=== PATIENT | male | born 1945 | race Caucasian/White ===

== ENCOUNTER 2016-08-20 11:17 | Inpatient (IN) | payer OTHER ==
[~2016-08-20] VITALS: Ht 195.6 cm; Wt 144.3 kg
[~2016-08-20 11:17] MED LIST: ADULT LOW DOSE81 M1 PO; ALBUTEROL SULF8.5 GM IH; ALLOPURINOL100 MG PO; ALLOPURINOL300 MG PO; AMBIEN CR12.5 MG PO; AMBIEN10 MG PO; ANTIVERT25 MG PO; ASPIR 8181 M1 PO; ATIVAN1 MG PO; ATORVASTATIN CA80 MG PO; AUGMENTIN875 MG PO; Antivert PO; Aspirin E.C. PO; Ativan PO; CALCIUM 500 +1 EAC3 PO; CALCIUM 500 +1 EACH PO; CARDIZEM CD,CA240 MG PO; CARDIZEM CD240 MG PO; CARDIZEM LA240 MG PO; CARTIA XT240 MG PO; CELEXA20 MG PO; CITALOPRAM HBR20 MG PO; COLCRYS0.6 MG PO; Cardizem CD,Cartia X PO; DAILY VITAMIN1 EAC8 PO; DALIRESP500 MCG PO; DICLOFENAC SODI75 MG PO; DIGOXIN125 MCG PO; DIGOXIN250 MCG PO; DILTIAZEM HCL360 MG PO; DIOVAN160 MG PO; DIOVAN320 MG PO; DIOVAN40 MG PO; DOXYCYCLINE HY100 MG PO; DURAGESIC12 MCG TD; DURAGESIC25 MCG TD; Diclofenac Sodium PO; Duragesic TD; ERGOCALCIF50000 UNIT PO; FENTANYL1 EAC4 TD; FENTANYL1 EAC5 TD; FLOMAX0.4 MG PO; FLONASE16 G1 BOTH NARES; FUROSEMIDE40 MG PO; Flomax PO; GABAPENTIN100 MG PO; GABAPENTIN600 MG PO; GLUCOPHAGE1000 MG PO; GLUCOPHAGE500 MG PO; INCRUSE ELLI62.5 MCG IH; K-DUR20 MEQ PO; KEFLEX500 MG PO; LANOXIN250 MCG PO; LANTUS 10100 UNITS/ SC; LANTUS 3 M100 UNITS1 SC; LASIX40 MG PO; LASIX80 MG PO; LIPITOR40 MG PO; LIPITOR80 MG PO; LORAZEPAM1 MG PO; LORCET 5-325 M1 EACH PO; Lanoxin,Digitek PO; Lasix PO; Lipitor PO; MATZIM LA240 MG PO; METFORMIN HCL1000 MG PO; METFORMIN HCL500 MG PO; METOPROLOL TART50 MG PO; MIRALAX17 GM PO; NEURONTIN100 MG PO; NEURONTIN300 MG PO; NEURONTIN600 MG PO; NOVOLOG 10100 UNITS/ SC; NOVOLOG PE100 UNITS/ SC; Neurontin PO; OXYCODONE HCL10 MG PO; OXYCODONE-APAP1 EACH PO; PERCOCET 10/1 TABLET PO; PLAVIX75 MG PO; PREDNISONE20 MG PO; PROAIR HFA8.5 GM IH; Percocet 5/325,Endoc PO; Plavix PO; REQUIP0.5 MG PO; SPIRIVA1 INHALATI IH; SYMBICORT60 INHALAT IH; Symbicort 160-4.5 mc IH; VITAMIN D1000 INTUN PO; Vitamin D PO; XARELTO20 MG PO; Xarelto PO; ZOLPIDEM TARTRA10 MG PO; ZYLOPRIM100 MG PO; Zyloprim PO
[2016-08-20 12:44] LABS: ADD MIUA? YES; BILIRUBIN NEGATIVE; BLOOD SMALL; COLOR YELLOW ((YELLOW)); GLUCOSE (STRIP) 50; KETONES NEGATIVE; LEUKOCYTES NEGATIVE; NITRITE NEGATIVE; PROTEIN (STRIP) >=500; SPECIFIC GRAVITY 1.029 (1.000-1.030); UROBILINOGEN 0.2 MG/DL (0.2-1.0)
[2016-08-20 12:47] LABS: BACTERIA NONE SEEN /HPF; EPITHELIAL CELLS RARE /HPF; HYALINE CASTS 0-5 /LPF; MUCUS TRACE /LPF; RED BLOOD CELLS 0-5 /HPF (0-5); WHITE BLOOD CELLS 0-5 /HPF (0-5)
[2016-08-20 12:57] LABS: EOSINOPHIL (%) 1.5 % (0-5); EOSINOPHIL COUNT 0.2 K/uL (0-0.3); IMMATURE GRANULOCYTE (%) 0.4 % (0.0-0.7); INSTRUMENT ABS NEUTROPHIL CT 8.5 K/uL; LYMPHOCYTE COUNT 1.2 K/uL (1.0-2.8); MCH 26.1 PG (29.0-34.0); MCHC 31.2 G/DL (30.0-36.0); MCV 83.8 FL (86-99); MEAN PLAT.VOLUME 11.3 uM^3 (9.0-12.4); MONOCYTE (%) 5.8 % (3-12); MONOCYTE COUNT 0.6 K/uL (0-0.8); NEUTROPHIL (%) 80.5 % (45-76); NEUTROPHIL COUNT 8.5 K/uL (1.8-6.4); PLATELET COUNT 225 K/uL (156-360); RBC DIS.WIDTH-CV 15.5 % (11.8-14.6); RBC DIS.WIDTH-SD 45.8 % (39-53); RED BLOOD COUNT 5.97 M/uL (4.00-5.50); WHITE BLOOD COUNT 10.6 K/uL (4.1-10.2)
[2016-08-20 13:08] LABS: CHLORIDE 103 mEq/L (99-109); POTASSIUM 4.3 mEq/L (3.7-5.4); SODIUM 140 mEq/L (136-147)
[2016-08-20 13:11] LABS: GLUCOSE 174 mg/dL (70-99)
[2016-08-20 13:12] LABS: ANION GAP 11 MEQ/L (2-14)
[2016-08-20 13:14] LABS: ALKALINE PHOSPHATASE 91 IU/L (3-129); GFR ESTIMATE (CALCULATED) 58 mL/min/
[2016-08-20 13:15] LABS: UREA NITROGEN (BUN) 21 mg/dL (9-23)
[2016-08-20 13:18] LABS: LIPASE 33 U/L (1.0-51.0)
[2016-08-20] MEDS ORDERED: NOVOLOG PE100 UNITS/ SC ×2 (16:00→16:01)
[2016-08-20] MEDS ORDERED: CORDARONE200 MG PO (16:03)
[2016-08-20] MEDS ORDERED: MAGNESIUM400 M1 PO (16:03)
[2016-08-20] MEDS ORDERED: VENTOLIN HFA18 GM IH (16:04)
[2016-08-20 18:08] LABS: INTER. NORMALIZED RATIO 1.1; PROTHROMBIN TIME 11.7 (9.2-11.2); PTT 29.7 (25-32)
[2016-08-20 18:56] VITALS: BP 144/72
[2016-08-20 19:09] VITALS: BP 135/73
[2016-08-20 22:29] VITALS: BP 167/72
[2016-08-20 23:53] LABS: POINT-OF-CARE METER ID UU13113725
[2016-08-21 03:15] LABS: EOSINOPHIL (%) 1.9 % (0-5); EOSINOPHIL COUNT 0.2 K/uL (0-0.3); HEMATOCRIT 46.7 % (38.0-50.0); IMMATURE GRANULOCYTE (%) 0.4 % (0.0-0.7); INSTRUMENT ABS NEUTROPHIL CT 5.9 K/uL; LYMPHOCYTE COUNT 1.3 K/uL (1.0-2.8); MCH 26.1 PG (29.0-34.0); MCHC 31.3 G/DL (30.0-36.0); MCV 83.5 FL (86-99); MEAN PLAT.VOLUME 10.8 uM^3 (9.0-12.4); MONOCYTE (%) 5.7 % (3-12); MONOCYTE COUNT 0.5 K/uL (0-0.8); NEUTROPHIL (%) 75.6 % (45-76); NEUTROPHIL COUNT 5.9 K/uL (1.8-6.4); PLATELET COUNT 179 K/uL (156-360); RBC DIS.WIDTH-CV 15.2 % (11.8-14.6); RBC DIS.WIDTH-SD 45.8 % (39-53); RED BLOOD COUNT 5.59 M/uL (4.00-5.50); WHITE BLOOD COUNT 7.9 K/uL (4.1-10.2)
[2016-08-21 03:23] LABS: CHLORIDE 108 mEq/L (99-109); POTASSIUM 4.4 mEq/L (3.7-5.4); SODIUM 141 mEq/L (136-147)
[2016-08-21 03:24] LABS: GLUCOSE 126 mg/dL (70-99)
[2016-08-21 03:26] LABS: ANION GAP 10 MEQ/L (2-14)
[2016-08-21 03:28] LABS: GFR ESTIMATE (CALCULATED) > 59 mL/min/
[2016-08-21 03:29] LABS: UREA NITROGEN (BUN) 16 mg/dL (9-23)
[2016-08-21 04:00] VITALS: BP 154/89
[2016-08-21 07:10] VITALS: BP 164/82
[2016-08-21 12:17] LABS: POINT-OF-CARE METER ID UU13113725
[2016-08-21 15:40] VITALS: BP 171/104
[2016-08-21 19:11] VITALS: BP 184/109
[2016-08-21 22:49] VITALS: BP 165/80
[2016-08-22 05:37] VITALS: BP 164/82
[2016-08-22 07:15] VITALS: BP 138/70
[2016-08-22 12:05] VITALS: BP 136/87
[2016-08-22 12:27] LABS: POINT-OF-CARE METER ID UU13113725
[2016-08-22 15:30] VITALS: BP 160/94
[2016-08-22 19:01] LABS: POINT-OF-CARE METER ID UU13113725
[2016-08-22 19:41] VITALS: BP 155/96
[2016-08-22 21:20] LABS: POINT-OF-CARE METER ID UU13113725
[2016-08-22 23:55] VITALS: BP 127/94
[2016-08-23 03:38] VITALS: BP 135/73
[2016-08-23 07:00] LABS: EOSINOPHIL (%) 0.8 % (0-5); EOSINOPHIL COUNT 0.1 K/uL (0-0.3); HEMATOCRIT 44.4 % (38.0-50.0); IMMATURE GRANULOCYTE (%) 0.4 % (0.0-0.7); INSTRUMENT ABS NEUTROPHIL CT 5.7 K/uL; LYMPHOCYTE COUNT 0.6 K/uL (1.0-2.8); MCH 26.1 PG (29.0-34.0); MCHC 31.1 G/DL (30.0-36.0); MCV 84.1 FL (86-99); MEAN PLAT.VOLUME 11.5 uM^3 (9.0-12.4); MONOCYTE (%) 9.6 % (3-12); MONOCYTE COUNT 0.7 K/uL (0-0.8); NEUTROPHIL (%) 81.1 % (45-76); NEUTROPHIL COUNT 5.7 K/uL (1.8-6.4); PLATELET COUNT 139 K/uL (156-360); RBC DIS.WIDTH-CV 15.5 % (11.8-14.6); RBC DIS.WIDTH-SD 46.8 % (39-53); RED BLOOD COUNT 5.28 M/uL (4.00-5.50); WHITE BLOOD COUNT 7.1 K/uL (4.1-10.2)
[2016-08-23 07:17] LABS: ANION GAP 12 MEQ/L (2-14); CHLORIDE 103 MEQ/L (99-109); GFR ESTIMATE (CALCULATED) > 59 mL/min/; GLUCOSE 112 mg/dL (70-99); MAGNESIUM 1.6 mg/dl (1.3-2.7); POTASSIUM 3.8 MEQ/L (3.7-5.4); SAMPLE HEMOLYSIS CHECK 0; SAMPLE ICTERIC CHECK 0; SAMPLE LIPEMIA CHECK 0; SODIUM 137 MEQ/L (136-147); UREA NITROGEN (BUN) 12 mg/dL (9-23)
[2016-08-23 08:30] VITALS: BP 136/68
[2016-08-23 11:43] VITALS: BP 136/68
[2016-08-23 11:44] LABS: POINT-OF-CARE METER ID UU13113725
== END 2016-08-23 15:39 | disposition home or self-care (01) | DRG 389 ==
LOC: EME 11:17 → 5EAST 15:48 → EDOF 15:48 → 5EAST 17:50
PROVIDERS: Emergency Medicine; Hospitalist; Internal Medicine; Student in an Organized Health Care Education/Training Program; Surgery
DX: K56.60 Unspecified intestinal obstruction (principal); I42.9 Cardiomyopathy, unspecified; I48.1 Persistent atrial fibrillation; R18.8 Other ascites; E11.9 Type 2 diabetes mellitus without complications; I10 Essential (primary) hypertension; I25.10 Atherosclerotic heart disease of native coronary artery without angina pectoris; I50.9 Heart failure, unspecified; G47.30 Sleep apnea, unspecified; J44.9 Chronic obstructive pulmonary disease, unspecified; J45.909 Unspecified asthma, uncomplicated; E66.9 Obesity, unspecified; Z68.37 Body mass index [BMI] 37.0-37.9, adult; I25.2 Old myocardial infarction; Z90.49 Acquired absence of other specified parts of digestive tract; Z79.01 Long term (current) use of anticoagulants; Z79.4 Long term (current) use of insulin; Z86.73 Personal history of transient ischemic attack (TIA), and cerebral infarction without residual deficits; Z98.84 Bariatric surgery status; Z87.891 Personal history of nicotine dependence
CPT/HCPCS: 74000; 74020; 74177; 80048; 80053; 81003; 82948; 83605; 83690; 83735; 85025; 85027; 85610; 85730; 93005; 99281; 99285; J1160; J1170; J1815; J2405; J3010; J7030; J7050

== ENCOUNTER 2016-11-24 11:40 | Emergency (ER) | payer OTHER ==
[~2016-11-24 11:40] MED LIST changes: +CORDARONE200 MG PO; +MAGNESIUM400 M1 PO; +VENTOLIN HFA18 GM IH
[2016-11-24 14:17] LABS: MCH 26.4 PG (29.0-34.0); MCHC 31.3 G/DL (30.0-36.0); MCV 84.3 FL (86-99); MEAN PLAT.VOLUME 11.3 uM^3 (9.0-12.4); PLATELET COUNT 182 K/uL (156-360); RBC DIS.WIDTH-CV 14.9 % (11.8-14.6); RBC DIS.WIDTH-SD 45.2 % (39-53); RED BLOOD COUNT 5.34 M/uL (4.00-5.50)
[2016-11-24 14:30] LABS: CHLORIDE 105 mEq/L (99-109); POTASSIUM 4.3 mEq/L (3.7-5.4); SODIUM 138 mEq/L (136-147)
[2016-11-24 14:32] LABS: GLUCOSE 138 mg/dL (70-99)
[2016-11-24 14:34] LABS: ANION GAP 11 MEQ/L (2-14); TOTAL BILIRUBIN 0.6 mg/dL (0.0-1.0)
[2016-11-24 14:36] LABS: ALKALINE PHOSPHATASE 82 IU/L (3-129); GFR ESTIMATE (CALCULATED) 58 mL/min/
[2016-11-24 14:37] LABS: UREA NITROGEN (BUN) 30 mg/dL (9-23)
[2016-11-24] MEDS ORDERED: LORTAB 5-325 M1 EACH PO (16:23)
[2016-11-24 16:24] LABS: ERTH.SED.RATE 24 MM/HR (0-20)
[2016-11-24] MEDS ORDERED: KETOCONAZOLE60 GM TP (16:24)
[2016-11-24 16:35] VITALS: BP 120/68
== END 2016-11-24 16:36 | disposition home or self-care (01) ==
LOC: EME 11:40
PROVIDERS: Nurse Practitioner Family
DX: S91.302A Unspecified open wound, left foot, initial encounter (principal); L08.9 Local infection of the skin and subcutaneous tissue, unspecified; B35.3 Tinea pedis; B35.1 Tinea unguium; E11.40 Type 2 diabetes mellitus with diabetic neuropathy, unspecified; I11.0 Hypertensive heart disease with heart failure; I50.9 Heart failure, unspecified; I48.91 Unspecified atrial fibrillation; W45.8XXA Other foreign body or object entering through skin, initial encounter; Z88.2 Allergy status to sulfonamides; Z88.5 Allergy status to narcotic agent; Z87.891 Personal history of nicotine dependence; Z79.01 Long term (current) use of anticoagulants; Z79.4 Long term (current) use of insulin; Z79.84 Long term (current) use of oral hypoglycemic drugs; Z79.899 Other long term (current) drug therapy; Z90.49 Acquired absence of other specified parts of digestive tract
CPT/HCPCS: 73630; 80053; 81003; 85027; 85651; 99281; 99284

== ENCOUNTER 2017-03-01 12:13 | Observation (INO) | payer OTHER ==
[~2017-03-01] VITALS: Ht 195.6 cm; Wt 148.7 kg
[~2017-03-01 12:13] MED LIST changes: +KETOCONAZOLE60 GM TP; +LORTAB 5-325 M1 EACH PO
[2017-03-01 12:47] LABS: HEMATOCRIT 48.5 % (38.0-50.0); MCH 26.6 PG (29.0-34.0); MCHC 31.8 G/DL (30.0-36.0); MCV 83.8 FL (86-99); MEAN PLAT.VOLUME 10.5 uM^3 (9.0-12.4); PLATELET COUNT 190 K/uL (156-360); RBC DIS.WIDTH-CV 15.1 % (11.8-14.6); RBC DIS.WIDTH-SD 45.2 % (39-53); RED BLOOD COUNT 5.79 M/uL (4.00-5.50); WHITE BLOOD COUNT 10.5 K/uL (4.1-10.2)
[2017-03-01 12:55] LABS: CHLORIDE 106 mEq/L (99-109); POTASSIUM 4.5 mEq/L (3.7-5.4); SODIUM 141 mEq/L (136-147)
[2017-03-01 12:58] LABS: GLUCOSE 165 mg/dL (70-99)
[2017-03-01 12:59] LABS: ANION GAP 12 MEQ/L (2-14)
[2017-03-01 13:00] LABS: TOTAL BILIRUBIN 1.2 mg/dL (0.0-1.0)
[2017-03-01 13:01] LABS: ALKALINE PHOSPHATASE 85 IU/L (3-129); GFR ESTIMATE (CALCULATED) > 59 mL/min/
[2017-03-01 13:02] LABS: UREA NITROGEN (BUN) 22 mg/dL (9-23)
[2017-03-01 14:45] LABS: ADD MIUA? YES; BILIRUBIN NEGATIVE; BLOOD SMALL; GLUCOSE (STRIP) 50; KETONES NEGATIVE; LEUKOCYTES NEGATIVE; NITRITE NEGATIVE; PROTEIN (STRIP) >=500; SPECIFIC GRAVITY 1.026 (1.000-1.030); UROBILINOGEN 0.2 MG/DL (0.2-1.0)
[2017-03-01 14:46] LABS: COLOR DK YELLOW ((YELLOW))
[2017-03-01 14:48] LABS: BACTERIA NONE SEEN /HPF; EPITHELIAL CELLS RARE /HPF; MUCUS TRACE /LPF; RED BLOOD CELLS 0-5 /HPF (0-5); UCUL ADDED? NO; WHITE BLOOD CELLS 0-5 /HPF (0-5)
[2017-03-01] MEDS ORDERED: NOVOLOG PE100 UNITS/ SC (16:10)
[2017-03-01] MEDS ORDERED: FLUVIRIN 245 MCG/019 IM (16:11)
[2017-03-01] MEDS ORDERED: LYRICA75 MG PO (16:11)
[2017-03-01 18:40] VITALS: BP 124/81
[2017-03-01 19:12] LABS: POINT-OF-CARE METER ID UU13113717
[2017-03-01 19:33] VITALS: BP 131/75
[2017-03-01 21:28] LABS: POINT-OF-CARE METER ID UU13113717
[2017-03-01 23:20] VITALS: BP 108/76
[2017-03-02 03:54] VITALS: BP 113/75
[2017-03-02 05:57] LABS: HEMATOCRIT 45.9 % (38.0-50.0); MCH 26.5 PG (29.0-34.0); MCHC 30.9 G/DL (30.0-36.0); MCV 85.6 FL (86-99); MEAN PLAT.VOLUME 10.9 uM^3 (9.0-12.4); PLATELET COUNT 188 K/uL (156-360); RBC DIS.WIDTH-CV 15.2 % (11.8-14.6); RBC DIS.WIDTH-SD 46.9 % (39-53); RED BLOOD COUNT 5.36 M/uL (4.00-5.50); WHITE BLOOD COUNT 7.7 K/uL (4.1-10.2)
[2017-03-02 06:41] LABS: ANION GAP 10 MEQ/L (2-14); CHLORIDE 104 MEQ/L (99-109); GFR ESTIMATE (CALCULATED) 58 mL/min/; GLUCOSE 128 mg/dL (70-99); POTASSIUM 4.5 MEQ/L (3.7-5.4); SAMPLE HEMOLYSIS CHECK 0; SAMPLE ICTERIC CHECK 0; SAMPLE LIPEMIA CHECK 0; SODIUM 140 MEQ/L (136-147); UREA NITROGEN (BUN) 23 mg/dL (9-23)
[2017-03-02 07:52] LABS: POINT-OF-CARE METER ID UU14174225
[2017-03-02 08:36] VITALS: BP 129/81
[2017-03-02 11:45] VITALS: BP 124/77
[2017-03-02] MEDS ORDERED: TRAMADOL HCL50 MG PO (12:06)
[2017-03-02 12:26] LABS: POINT-OF-CARE METER ID UU13113717; POINT-OF-CARE USER ID STWAMT
== END 2017-03-02 13:15 | disposition home or self-care (01) ==
LOC: EME 12:13 → 5SOUTH 15:51 → EDOF 15:51 → ENRESERV 16:12 → 5SOUTH 17:33
PROVIDERS: Internal Medicine
DX: K56.600 Partial intestinal obstruction, unspecified as to cause (principal); E66.01 Morbid (severe) obesity due to excess calories; Z68.38 Body mass index [BMI] 38.0-38.9, adult; Z98.84 Bariatric surgery status; E11.9 Type 2 diabetes mellitus without complications; I10 Essential (primary) hypertension; Z87.891 Personal history of nicotine dependence; I25.10 Atherosclerotic heart disease of native coronary artery without angina pectoris; Z95.5 Presence of coronary angioplasty implant and graft; I48.2 Chronic atrial fibrillation; I42.9 Cardiomyopathy, unspecified; I25.2 Old myocardial infarction; G47.30 Sleep apnea, unspecified; M10.9 Gout, unspecified; Z86.73 Personal history of transient ischemic attack (TIA), and cerebral infarction without residual deficits; E78.5 Hyperlipidemia, unspecified; Z86.010 Personal history of colon polyps; Z87.440 Personal history of urinary (tract) infections; Z86.19 Personal history of other infectious and parasitic diseases; G89.29 Other chronic pain; F11.21 Opioid dependence, in remission; Z90.49 Acquired absence of other specified parts of digestive tract; R74.0 Nonspecific elevation of levels of transaminase and lactic acid dehydrogenase [LDH]; J44.9 Chronic obstructive pulmonary disease, unspecified; Z79.01 Long term (current) use of anticoagulants; Z88.2 Allergy status to sulfonamides; Z88.5 Allergy status to narcotic agent; Z79.4 Long term (current) use of insulin
CPT/HCPCS: 74176; 80048; 80053; 81003; 82948; 85027; 94640; 99202; 99281; 99285; G0378; J1170; J1815; J2405; J3010; J7030; S0028

== ENCOUNTER 2017-04-12 04:32 | Inpatient (IN) | payer OTHER ==
[~2017-04-12] VITALS: Ht 195.6 cm; Wt 146.0 kg
[~2017-04-12 04:32] MED LIST changes: +FLUVIRIN 245 MCG/019 IM; +LYRICA75 MG PO; +TRAMADOL HCL50 MG PO
[2017-04-12 05:03] LABS: EOSINOPHIL (%) 1.8 % (0-5); EOSINOPHIL COUNT 0.2 K/uL (0-0.3); HEMATOCRIT 43.1 % (38.0-50.0); IMMATURE GRANULOCYTE (%) 0.1 % (0.0-0.7); INSTRUMENT ABS NEUTROPHIL CT 6.5 K/uL; MCH 27.1 PG (29.0-34.0); MCHC 31.8 G/DL (30.0-36.0); MCV 85.2 FL (86-99); MEAN PLAT.VOLUME 10.9 uM^3 (9.0-12.4); MONOCYTE (%) 9.3 % (3-12); MONOCYTE COUNT 0.8 K/uL (0-0.8); NEUTROPHIL (%) 76.9 % (45-76); NEUTROPHIL COUNT 6.5 K/uL (1.8-6.4); PLATELET COUNT 179 K/uL (156-360); RBC DIS.WIDTH-SD 46.2 % (39-53); RED BLOOD COUNT 5.06 M/uL (4.00-5.50); WHITE BLOOD COUNT 8.5 K/uL (4.1-10.2)
[2017-04-12 05:12] LABS: CHLORIDE 105 mEq/L (99-109); SODIUM 138 mEq/L (136-147)
[2017-04-12 05:13] LABS: MAGNESIUM 1.7 mg/dL (1.3-2.7)
[2017-04-12 05:14] LABS: GLUCOSE 154 mg/dL (70-99)
[2017-04-12 05:15] LABS: ANION GAP 8 MEQ/L (2-14)
[2017-04-12 05:18] LABS: ALKALINE PHOSPHATASE 72 IU/L (3-129); GFR ESTIMATE (CALCULATED) > 59 mL/min/
[2017-04-12 05:19] LABS: UREA NITROGEN (BUN) 20 mg/dL (9-23)
[2017-04-12 05:24] LABS: TROP-I INTERPRETATION NEGATIVE; TROPONIN-I 0.02 ng/mL (0.0-0.30)
[2017-04-12 05:27] LABS: CK-MB 2.9 ng/mL (0.0-4.9)
[2017-04-12 05:28] LABS: DIGOXIN 0.5 ng/mL (0.8-2.0)
[2017-04-12 06:05] LABS: CREATINE KINASE 171 IU/L (1-294); TOTAL CK 171 IU/L (1-294)
[2017-04-12 11:15] VITALS: BP 167/74
[2017-04-12 12:57] LABS: TROP-I INTERPRETATION NEGATIVE; TROPONIN-I 0.02 ng/mL (0.0-0.30)
[2017-04-12 16:31] LABS: POINT-OF-CARE METER ID UU13113698
[2017-04-12 17:43] LABS: TROP-I INTERPRETATION NEGATIVE; TROPONIN-I 0.02 ng/mL (0.0-0.30)
[2017-04-12 20:47] VITALS: BP 134/80
[2017-04-12 20:59] LABS: POINT-OF-CARE METER ID UU14174216
[2017-04-13] VITALS (8 sets, daily range): BP systolic 111–163; BP diastolic 68–95
[2017-04-13 06:19] LABS: HEMATOCRIT 42.6 % (38.0-50.0); MCH 26.6 PG (29.0-34.0); MCHC 31.5 G/DL (30.0-36.0); MCV 84.5 FL (86-99); PLATELET COUNT 215 K/uL (156-360); RBC DIS.WIDTH-CV 14.8 % (11.8-14.6); RBC DIS.WIDTH-SD 45.1 % (39-53); RED BLOOD COUNT 5.04 M/uL (4.00-5.50); WHITE BLOOD COUNT 7.6 K/uL (4.1-10.2)
[2017-04-13 06:44] LABS: ANION GAP 9 MEQ/L (2-14); CHLORIDE 107 MEQ/L (99-109); GFR ESTIMATE (CALCULATED) > 59 mL/min/; GLUCOSE 217 mg/dL (70-99); POTASSIUM 4.8 MEQ/L (3.7-5.4); SAMPLE HEMOLYSIS CHECK 0; SAMPLE ICTERIC CHECK 0; SAMPLE LIPEMIA CHECK 0; SODIUM 139 MEQ/L (136-147); UREA NITROGEN (BUN) 23 mg/dL (9-23)
[2017-04-13 08:12] LABS: POINT-OF-CARE METER ID UU13113781; POINT-OF-CARE USER ID ENVKC36
[2017-04-13 12:05] LABS: POINT-OF-CARE METER ID UU14314088; POINT-OF-CARE USER ID ENVKC36
[2017-04-13 17:02] LABS: POINT-OF-CARE METER ID UU14314088; POINT-OF-CARE USER ID ENVKC36
[2017-04-13 20:59] LABS: POINT-OF-CARE METER ID UU14314088; POINT-OF-CARE USER ID ENVMNS
[2017-04-14 04:27] VITALS: BP 125/74
[2017-04-14 07:13] VITALS: BP 155/89
[2017-04-14 07:42] LABS: POINT-OF-CARE METER ID UU14314088
[2017-04-14 11:30] VITALS: BP 157/85
[2017-04-14 11:37] LABS: POINT-OF-CARE METER ID UU14314088
[2017-04-14 17:31] LABS: POINT-OF-CARE METER ID UU14314088
[2017-04-14 19:19] VITALS: BP 156/74
[2017-04-14 21:18] LABS: POINT-OF-CARE METER ID UU14314088
[2017-04-14 23:34] VITALS: BP 121/71
[2017-04-15 05:14] VITALS: BP 153/89
[2017-04-15 07:29] LABS: ANION GAP ND MEQ/L (2-14); CHLORIDE 108 MEQ/L (99-109); GLUCOSE 78 mg/dL (70-99); POTASSIUM 4.1 MEQ/L (3.7-5.4); SAMPLE HEMOLYSIS CHECK 0; SAMPLE ICTERIC CHECK 0; SAMPLE LIPEMIA CHECK 0; SODIUM 142 MEQ/L (136-147); UREA NITROGEN (BUN) 37 mg/dL (9-23)
[2017-04-15 07:36] VITALS: BP 125/86
[2017-04-15 08:02] LABS: GFR ESTIMATE (CALCULATED) > 59 mL/min/
[2017-04-15 08:23] LABS: POINT-OF-CARE METER ID UU14174216
[2017-04-15] MEDS ORDERED: LEVOFLOXACIN750 MG PO (09:54)
[2017-04-15] MEDS ORDERED: LOPRESSOR100 M1 PO (09:54)
[2017-04-15] MEDS ORDERED: PREDNISONE20 MG PO (09:58)
== END 2017-04-15 10:50 | disposition home or self-care (01) | DRG 308 ==
LOC: EME 04:32 → 4EAST 08:01 → EDOF 08:01 → ENRESERV 08:07 → 4EAST 10:59
PROVIDERS: Emergency Medicine; Hospitalist; Internal Medicine
DX: I48.2 Chronic atrial fibrillation (principal); J44.0 Chronic obstructive pulmonary disease with (acute) lower respiratory infection; J44.1 Chronic obstructive pulmonary disease with (acute) exacerbation; I50.22 Chronic systolic (congestive) heart failure; J18.0 Bronchopneumonia, unspecified organism; G47.33 Obstructive sleep apnea (adult) (pediatric); I25.10 Atherosclerotic heart disease of native coronary artery without angina pectoris; I27.20 Pulmonary hypertension, unspecified; I35.0 Nonrheumatic aortic (valve) stenosis; I11.0 Hypertensive heart disease with heart failure; I45.10 Unspecified right bundle-branch block; I71.2 Thoracic aortic aneurysm, without rupture; E78.5 Hyperlipidemia, unspecified; E66.01 Morbid (severe) obesity due to excess calories; J84.10 Pulmonary fibrosis, unspecified; I42.9 Cardiomyopathy, unspecified; Z98.84 Bariatric surgery status; Z68.38 Body mass index [BMI] 38.0-38.9, adult; Z79.01 Long term (current) use of anticoagulants; Z88.5 Allergy status to narcotic agent; Z88.2 Allergy status to sulfonamides; Z95.5 Presence of coronary angioplasty implant and graft; Z90.49 Acquired absence of other specified parts of digestive tract; Z87.891 Personal history of nicotine dependence; Z86.73 Personal history of transient ischemic attack (TIA), and cerebral infarction without residual deficits; Z79.82 Long term (current) use of aspirin; Z79.4 Long term (current) use of insulin; Z79.51 Long term (current) use of inhaled steroids
CPT/HCPCS: 71010; 71250; 80048; 80053; 80162; 82550; 82553; 82948; 83605; 83735; 83880; 84484; 85025; 85027; 87040; 87070; 87205; 87502; 93005; 94010; 94640; 94640 76; 94667; 94760; 94799; 99202; 99281; 99285; J1160; J1815; J1956; J2543; J2920; J3370; J7030; J7040; J7512